=== PATIENT | female | born 1985 | race Caucasian/White ===

== ENCOUNTER 2017-10-26 12:49 | Emergency (ER) | payer OTHER ==
[~2017-10-26] VITALS: Ht 162.6 cm; Wt 81.7 kg
[~2017-10-26 12:49] MED LIST: CEPHALEXIN 500500 M3 PO; CIPROFLOXIN HC2.5 M1 OPHTHALMIC; MOBIC7.5 M1 PO; NORCO 5-325 TA1 EACH PO; ROBAXIN500 MG PO; ULTRAM 50MG TAB50 MG PO
[2017-10-26 13:01] VITALS: BP 149/85
[2017-10-26 13:30] LABS: INFLUENZA A ANTIGEN None Detected (None Detect); INFLUENZA B ANTIGEN None Detected (None Detect)
[2017-10-26] MEDS ORDERED: ZPAK PO (13:44)
[2017-10-26] MEDS ORDERED: PROAIR HFA8.5 GM INH ×2 (13:44→13:53)
[2017-10-26] MEDS ORDERED: AMOXICILLIN 50500 MG PO (13:52)
== END 2017-10-26 14:02 | disposition home or self-care (01) ==
LOC: M.ERS 12:49
PROVIDERS: Nurse Practitioner Family
DX: J06.9 Acute upper respiratory infection, unspecified (principal); Z98.890 Other specified postprocedural states

== ENCOUNTER 2017-11-15 06:48 | Emergency (ER) | payer OTHER ==
[~2017-11-15] VITALS: Ht 157.5 cm; Wt 81.7 kg
[~2017-11-15 06:48] MED LIST changes: +AMOXICILLIN 50500 MG PO; +PROAIR HFA8.5 GM INH; +ZPAK PO
[2017-11-15] MEDS ORDERED: MUCINEX100 MG PO (07:02)
[2017-11-15] MEDS ORDERED: IBUPROFEN 600600 M1 PO (07:02)
[2017-11-15 07:25] LABS: INFLUENZA A ANTIGEN None Detected (None Detect); INFLUENZA B ANTIGEN None Detected (None Detect)
[2017-11-15] MEDS ORDERED: TUSSIONEX PENN115 ML PO (07:55)
[2017-11-15] MEDS ORDERED: PREDNISONE 20 M20 M1 PO (07:55)
[2017-11-15] MEDS ORDERED: ZPAK PO (07:55)
[2017-11-15 08:02] VITALS: BP 144/79
== END 2017-11-15 08:05 | disposition home or self-care (01) ==
LOC: M.ERS 06:48
PROVIDERS: Family Medicine
DX: J40 Bronchitis, not specified as acute or chronic (principal); F17.200 Nicotine dependence, unspecified, uncomplicated; Z98.890 Other specified postprocedural states

== ENCOUNTER 2019-05-20 18:46 | Emergency (ER) | payer OTHER ==
[~2019-05-20] VITALS: Ht 157.5 cm; Wt 83.9 kg
[~2019-05-20 18:46] MED LIST changes: +IBUPROFEN 600600 M1 PO; +MUCINEX100 MG PO; +PREDNISONE 20 M20 M1 PO; +TUSSIONEX PENN115 ML PO
[2019-05-20] MEDS ORDERED: PROMETH-CODEIN 65 ML PO (20:29)
[2019-05-20] MEDS ORDERED: VENTOLIN HFA 1818 GM INH (20:29)
[2019-05-20] MEDS ORDERED: MEDROLDOSEPACK PO (20:29)
[2019-05-20] MEDS ORDERED: AZITHROMYCIN 2250 MG PO (20:29)
[2019-05-20 20:55] VITALS: BP 193/116
== END 2019-05-20 21:24 | disposition home or self-care (01) ==
LOC: M.ERS 18:46
DX: J20.9 Acute bronchitis, unspecified (principal); H65.03 Acute serous otitis media, bilateral; I10 Essential (primary) hypertension; F17.210 Nicotine dependence, cigarettes, uncomplicated; Z98.890 Other specified postprocedural states